=== PATIENT | male | born 1945 | race Caucasian/White ===

== ENCOUNTER → 2017-03-19 | Outpatient (CLI) | payer MEDICARE, BC ==
[2017-03-19] MEDS: IOHEXOL 180 MG/ML 10 ML VIAL. IT ×2 (08:25)
== END | disposition home or self-care (01) ==
LOC: RAD 07:22
DX: M48.061 Spinal stenosis, lumbar region without neurogenic claudication (principal); M43.16 Spondylolisthesis, lumbar region; J45.909 Unspecified asthma, uncomplicated; I10 Essential (primary) hypertension
CPT/HCPCS: 72132; 72265; Q9965

== ENCOUNTER → 2017-03-28 | Outpatient (CLI) | payer MEDICARE, BC ==
[2017-03-28 10:25] LABS: ADD MAN DIFF? NO
[2017-03-28 10:28] LABS: BASO % 1 % (0-3); EOS # 0.2 x10^3/uL (0.0-0.7); EOS % 3 % (0-3); HEMATOCRIT 40.8 % (39.0-53.0); HEMOGLOBIN 14.4 g/dL (13.0-17.5); LYMPH # 1.6 x10^3/uL (1.0-4.8); LYMPH % 31 % (24-48); MEAN CORPUSCULAR HEMOGLOBIN 31 pg (25-35); MEAN CORPUSCULAR HGB CONC 35 g/dL (31-37); MEAN CORPUSCULAR VOLUME 89 fL (79-100); MONO # 0.4 x10^3/uL (0.0-1.1); MONO % 8 % (0-9); NEUT % 58 % (31-73); PLATELET COUNT 198 x10^3/uL (140-400); RED CELL DISTRIBUTION WIDTH 13.1 % (11.5-14.5); WHITE BLOOD COUNT 5.2 x10^3/uL (4.0-11.0)
[2017-03-28 10:38] LABS: PARTIAL THROMBOPLASTIN TIME 30 SEC (24-38)
[2017-03-28 10:55] LABS: INR 1.2 (0.8-1.1); PROTHROMBIN TIME PATIENT 14.1 SEC (11.7-14.0)
[2017-03-28 11:07] LABS: ALBUMIN 4.1 g/dL (3.4-5.0); ALBUMIN/GLOBULIN RATIO 1.2 (1.0-1.7); ALK PHOS 75 U/L (46-116); ALT (SGPT) 30 U/L (16-63); ANION GAP 10 (6-14); AST (SGOT) 34 U/L (15-37); BLOOD UREA NITROGEN 19 mg/dL (8-26); BUN/CREATININE RATIO 16 (6-20); CALCIUM 9.1 mg/dL (8.5-10.1); CARBON DIOXIDE 26 mmol/L (21-32); CHLORIDE 105 mmol/L (98-107); CREATININE 1.2 mg/dL (0.7-1.3); GFR 59.3; GLUCOSE 129 mg/dL (70-99); POTASSIUM 4.2 mmol/L (3.5-5.1); SODIUM 141 mmol/L (136-145); TOTAL BILIRUBIN 0.4 mg/dL (0.2-1.0); TOTAL PROTEIN 7.4 g/dL (6.4-8.2)
[2017-03-28 19:14] LABS: MRSA BY PCR Negative (Negative)
== END | disposition home or self-care (01) ==
LOC: SURGPAT 09:09
DX: Z01.818 Encounter for other preprocedural examination (principal); M43.06 Spondylolysis, lumbar region; M48.061 Spinal stenosis, lumbar region without neurogenic claudication; M54.16 Radiculopathy, lumbar region
CPT/HCPCS: 36415; 80053; 85025; 85610; 85730; 87641

== ENCOUNTER 2017-04-04 05:43 | Inpatient (IN) | payer MEDICARE, BC ==
[2017-04-04] MEDS: IV RINGERS,LACTATED 1000ML 1,000 ML IV (06:51)
[2017-04-04] MEDS ORDERED: MORPHINE SULFATE 2 MG/ML DISP.SYRIN. IV (07:00)
[2017-04-04] MEDS: LEVOTHYROXINE 50 MCG TABLET PO (07:00)
[2017-04-04] MEDS ORDERED: ONDANSETRON PF 4 MG/2 ML VIAL. IV ×2 (07:00→13:30)
[2017-04-04] MEDS ORDERED: 0.9 % SODIUM CHLORIDE 50 ML VIAL. IJ (07:38)
[2017-04-04] MEDS ORDERED: PROPOFOL 20 ML IV ×2 (07:38→14:29)
[2017-04-04] MEDS ORDERED: PROPOFOL 50 ML IV ×3 (07:38→12:26)
[2017-04-04] MEDS ORDERED: REMIFENTANIL 2 MG VIAL. IV (07:38)
[2017-04-04] MEDS ORDERED: LIDOCAINE 2% PF Vial for OR 5 ML VIAL. (07:38)
[2017-04-04] MEDS ORDERED: SUCCINYLCHOLINE 200 MG/10 ML VIAL. (07:39)
[2017-04-04] MEDS ORDERED: fentaNYL PF VIAL 100 MCG/2 ML VIAL ×2 (07:39→15:32)
[2017-04-04] MEDS ORDERED: ROCURONIUM 50 MG/5 ML VIAL. (07:39)
[2017-04-04] MEDS ORDERED: DEXAMETHASONE SOD PHOS 20 MG/5 ML VIAL. (09:15)
[2017-04-04] MEDS ORDERED: DESFLURANE > 120 MINUTES IH (09:15)
[2017-04-04] MEDS ORDERED: ePHEDrine PF IN SALINE 50 MG/5 ML DISP.SYRIN IV (09:19)
[2017-04-04] MEDS ORDERED: PHENYLEPHRINE in 0.9% NACL PF 1 MG/10 ML SYRINGE. IV (09:20)
[2017-04-04] MEDS ORDERED: PHENYLEPHRINE 10 MG/ML VIAL. ×2 (09:44→11:09)
[2017-04-04] MEDS: KETOROLAC 60 MG/2 ML INJ FOR OR. (09:45)
[2017-04-04] MEDS: THROMBIN TOPICAL 20,000 UNIT SPRAY.SYRN KIT TP ×2 (09:45→13:18)
[2017-04-04] MEDS: BUPIVAC MPF-EPI 0.5%-1:200000 30 ML VIAL. INJ (09:45)
[2017-04-04] MEDS: BACITRACIN 50,000 UNIT in IV NORMAL SALINE 1000ML BAG 1,000 ML IRR (09:45)
[2017-04-04] MEDS: GELATIN SPONGE SIZE 100. ×2 (09:45→13:18)
[2017-04-04] MEDS ORDERED: ONDANSETRON PF 4 MG/2 ML VIAL. (10:05)
[2017-04-04] MEDS ORDERED: REMIFENTANIL 1 MG VIAL. IV (12:24)
[2017-04-04] MEDS ORDERED: fentaNYL PF VIAL 100 MCG/2 ML VIAL IV ×2 (13:30)
[2017-04-04] MEDS ORDERED: diphenhydrAMINE 50 MG/ML VIAL IV (13:30)
[2017-04-04] MEDS ORDERED: MAG HYDROX/ALUMINUM HYD/SIMETH 30 ML ORAL.SUSP PO (13:30)
[2017-04-04] MEDS ORDERED: oxyCODONE/APAP 5/325 1 TAB TABLET PO (13:30)
[2017-04-04] MEDS ORDERED: MAGNESIUM HYDROXIDE 2,400 MG/30 ML ORAL.SUSP. PO (13:30)
[2017-04-04] MEDS ORDERED: 0.9 % SODIUM CHLORIDE 10 ML DISP.SYRIN. IV (13:30)
[2017-04-04] MEDS ORDERED: CALCIUM CARBONATE 500 MG TAB.CHEW PO (13:30)
[2017-04-04] MEDS ORDERED: diphenhydrAMINE HCL 25 MG CAPSULE PO (13:30)
[2017-04-04] MEDS ORDERED: ACETAMINOPHEN 325 MG TABLET. PO (13:30)
[2017-04-04] MEDS: MAGNESIUM OXIDE 400 MG TABLET PO (14:00)
[2017-04-04] MEDS: FINASTERIDE 5 MG TABLET. PO (14:00)
[2017-04-04] MEDS ORDERED: ceFAZolin SODIUM 1 GM in IV DEXTROSE 5% 50 ML IV (14:00)
[2017-04-04] MEDS: LISINOPRIL 20 MG TABLET PO (15:00)
[2017-04-04] MEDS: METHOCARBAMOL 750 MG TABLET PO ×2 (15:00→21:08)
[2017-04-04] MEDS: LIDOCAINE 1% PF 2 ML VIAL. ID (15:28)
[2017-04-04] MEDS: fentaNYL PF VIAL 100 MCG/2 ML VIAL IV ×5 (15:33→16:41)
[2017-04-04] MEDS ORDERED: NON FORMULARY ITEM (Albuterol Sulfate (Ventolin Hfa Inhaler) 2 PUFF) INH (16:00)
[2017-04-04] MEDS: PROCHLORPERAZINE 10 MG/2 ML VIAL. IV (16:19)
[2017-04-04] MEDS: POTASSIUM CL 20MEQ D5-0.45NACL 1,000 ML IV (17:51)
[2017-04-04] MEDS: ceFAZolin SODIUM IV Push 1 GM VIAL. IVP (17:52)
[2017-04-04] MEDS: oxyCODONE/APAP 5/325 1 TAB TABLET PO (19:37)
[2017-04-04] MEDS: ALBUTEROL SULFATE 2.5 MG/3 ML NEBU. NEB (20:00)
[2017-04-04] MEDS: MONTELUKAST SODIUM 10 MG TABLET. PO (21:08)
[2017-04-04] MEDS: DOCUSATE SODIUM 100 MG CAPSULE. PO (21:08)
[2017-04-05] MEDS: ceFAZolin SODIUM IV Push 1 GM VIAL. IVP ×2 (01:00→08:31)
[2017-04-05] MEDS: oxyCODONE/APAP 5/325 1 TAB TABLET PO ×3 (01:30→12:14)
[2017-04-05] MEDS: POTASSIUM CL 20MEQ D5-0.45NACL 1,000 ML IV (02:49)
[2017-04-05] MEDS: LEVOTHYROXINE 50 MCG TABLET PO (06:28)
[2017-04-05] MEDS: DOCUSATE SODIUM 100 MG CAPSULE. PO (08:33)
[2017-04-05] MEDS: METHOCARBAMOL 750 MG TABLET PO ×2 (08:34→12:51)
[2017-04-05] MEDS: MAGNESIUM OXIDE 400 MG TABLET PO (09:00)
[2017-04-05] MEDS: FINASTERIDE 5 MG TABLET. PO (09:00)
[2017-04-05] MEDS: LISINOPRIL 20 MG TABLET PO (09:00)
[2017-04-05] MEDS: TAMSULOSIN 0.4 MG CAP.ER.24H. PO (09:00)
[2017-04-05] MEDS: CETIRIZINE HCL 10 MG TABLET. PO (09:00)
== END 2017-04-05 13:25 | disposition home or self-care (01) | DRG 460 ==
LOC: OPSVCIP 05:43 → 4 SOUTHEST 16:52
PROC: 0SG3071 Fusion of Lumbosacral Joint with Autologous Tissue Substitute, Posterior Approach, Posterior Column, Open Approach (ICD-10-PCS; principal; 2017-04-04 08:30)
PROC: 07DR3ZZ Extraction of Iliac Bone Marrow, Percutaneous Approach (ICD-10-PCS; 2017-04-04 08:30)
PROC: 01NB0ZZ Release Lumbar Nerve, Open Approach (ICD-10-PCS; 2017-04-04 08:51)
PROC: 4A11X4G Monitoring of Peripheral Nervous Electrical Activity, Intraoperative, External Approach (ICD-10-PCS; 2017-04-04 08:51)
DX: M43.17 Spondylolisthesis, lumbosacral region (principal); I10 Essential (primary) hypertension; J45.909 Unspecified asthma, uncomplicated; M48.07 Spinal stenosis, lumbosacral region; M54.17 Radiculopathy, lumbosacral region; M19.90 Unspecified osteoarthritis, unspecified site; Z90.49 Acquired absence of other specified parts of digestive tract; Z98.49 Cataract extraction status, unspecified eye
CPT/HCPCS: 36415; 72131; 76000; 86850; 86900; 86901; 88304; 88311; 97162-GP; 97530-GP; C1713; G8978-CI-GP; G8979-CI-GP; G8980-CI-GP; J0330; J0690; J0780; J1100; J1885; J2370; J2405; J2704; J3010; J3490; J7030; J7120

== ENCOUNTER → 2021-06-09 | Day surgery (SDC) | payer MEDICARE, BC ==
[~2021-06-09] VITALS: Ht 182.9 cm; Wt 97.2 kg
[~2021-06-09] MED LIST: FINA5TAB4 PO; FLUO40CR TP; HYDROmorphone 2 MG/ML INJ. IVP PRN; IV RINGERS,LACTATED 1000ML 1,000 ML IV SCH; LEVO50TA5 PO; LIDOCAINE 2% PF 5 ML VIAL. ONE; LISI1TAB39 PO; LORA10TA68 PO; MAGN400C PO; METH-38 PO; MONT10TA49 PO; MORPHINE SULFATE 2 MG/ML INJ. IVP PRN; MULT-245 PO; NAPR220T70 PO; OXYC1TAB15 PO; PROCHLORPERAZINE 10 MG/2 ML VIAL. IVP PRN; PROPOFOL 10 MG/ML (20ML) VIAL. IV ONE; TAMS0.4C2 PO; VENTOLIN HFA18 GM INH; VITA400T4 PO; fentaNYL PF VIAL 100 MCG/2 ML VIAL IVP PRN
[2021-06-09 06:46] VITALS: BP 140/70
--- NOTE | 2021-06-09 07:10 | PDOC2 ---
CONSULT Date of Consult Date of Consult DATE: 06/09/21 TIME: 07:06 Reason for Consult Reason for Consult: Colorectal cancer screening History of Present Illness Reason for Visit: 76 year old Male who is seen for colorectal cancer screening. Ermias;jarad habits recently have become irregular with difficulties with defecation. Weight is stable despite poor appetite. No melena and/or hematochezia is present. With the continued issues, he requests further evaluation. Past Medical History Cardiovascular: HTN Pulmonary: Asthma Past Surgical History Past Surgical History: Appendectomy, Other (pyloric stenosis surgery) Family History Family History: Coronary Artery Disease Social History No ALCOHOL: none Current Medications Current Medications Current Medications Fentanyl Citrate (Fentanyl 2ml Vial) 25 mcg PRN Q5MIN PRN IVP MILD PAIN 1-3; Start 06/09/21 at 06:00; Stop 06/10/21 at 05:59 Fentanyl Citrate (Fentanyl 2ml Vial) 50 mcg PRN Q5MIN PRN IVP MODERATE PAIN 4- 6; Start 06/09/21 at 06:00; Stop 06/10/21 at 05:59 Morphine Sulfate (Morphine Sulfate) 1 mg PRN Q10MIN PRN IVP SEVERE PAIN 7-10; Start 06/09/21 at 06:00; Stop 06/10/21 at 05:59 Ringer's Solution 1,000 ml @ 30 mls/hr Q24H IV ; Start 06/09/21 at 06:00; Stop 06/09/21 at 17:59 Hydromorphone HCl (Dilaudid) 0.5 mg PRN Q10MIN PRN IVP SEVERE PAIN 7-10, 2nd CHOICE; Start 06/09/21 at 06:00; Stop 06/10/21 at 05:59 Prochlorperazine Edisylate (Compazine) 5 mg PACU PRN PRN IVP NAUSEA, MRX1; Start 06/09/21 at 06:00; Stop 06/10/21 at 05:59 Propofol (Diprivan) 200 mg STK-MED ONCE IV ; Start 06/09/21 at 06:54; Stop 06/09/21 at 06:54; Status DC Lidocaine HCl (Lidocaine Pf 2% Vial) 5 ml STK-MED ONCE .ROUTE ; Start 06/09/21 at 06:54; Stop 06/09/21 at 06:54; Status DC Active Scripts Active Reported Efudex (Fluorouracil) 40 Gm Cream..g. 1 Eze TP BID Aleve (Naproxen Sodium) 220 Mg Tablet 220 Mg PO BID Multi Vitamin Daily (Multivitamin) 1 Each Tablet 1 Each PO Vitamin E (Vitamin E Acid Succinate) 400 Unit Tablet 400 Unit PO Magnesium (Magnesium Oxide) 400 Mg Capsule 400 Mg PO Lisinopril-Hctz 20-25 Mg Tab (Lisinopril/Hydrochlorothiazide) 1 Each Tablet 1 Tab PO DAILY Levothyroxine Sodium 50 Mcg Tablet 50 Mcg PO DAILYAC Allergies Allergies: Coded Allergies: No Known Drug Allergies (Unverified , 06/09/21) ROS Musculoskeletal: Yes Joint Pain Physical Exam General: Alert, Oriented X3 Lungs: Clear to auscultation Heart: Normal S1, Normal S2 Abdomen: Normal bowel sounds, Soft, No tenderness Vitals VITALS Vital Signs Date Time Temp Pulse Resp B/P (MAP) Pulse Ox O2 Delivery O2 Flow Rate FiO2 06/09/21 06:55 Room Air 06/09/21 06:46 97.3 82 14 97 97.3 Assessment/Plan Assessment/Plan CRC screening- with change in bowel habits, is recommended at this time. R/B discussed with patient who is willing to proceed. JUDI PAGAN MD Jun 09, 2021 07:10
[2021-06-09 07:51] VITALS: BP 101/64
== END | disposition home or self-care (01) ==
LOC: ENDOS 06:20
PROVIDERS: ATTEND Internal Medicine Gastroenterology
DX: R19.4 Change in bowel habit (principal); K64.0 First degree hemorrhoids; K57.30 Diverticulosis of large intestine without perforation or abscess without bleeding; K63.89 Other specified diseases of intestine; I10 Essential (primary) hypertension; J45.909 Unspecified asthma, uncomplicated; M19.90 Unspecified osteoarthritis, unspecified site; E03.9 Hypothyroidism, unspecified; N40.0 Benign prostatic hyperplasia without lower urinary tract symptoms; Z85.828 Personal history of other malignant neoplasm of skin; Z87.19 Personal history of other diseases of the digestive system; Z79.899 Other long term (current) drug therapy; Z98.890 Other specified postprocedural states; Z82.49 Family history of ischemic heart disease and other diseases of the circulatory system
CPT/HCPCS: 45378; J2704